=== PATIENT | male | born 1990 | race Caucasian/White ===

== ENCOUNTER 2018-12-13 01:16 | Emergency (ER) | payer BC ==
[~2018-12-13] VITALS: Ht 172.7 cm; Wt 77.1 kg
[2018-12-13 01:59] VITALS: BP 143/86
== END 2018-12-13 02:01 | disposition left against medical advice (07) ==
LOC: ER 01:23
DX: R07.89 Other chest pain (principal); F41.9 Anxiety disorder, unspecified; Z53.21 Procedure and treatment not carried out due to patient leaving prior to being seen by health care provider
CPT/HCPCS: 93005